=== PATIENT | female | born 1955 | race Asian ===

== ENCOUNTER 2020-07-03 14:56 | Inpatient (IN) | payer MEDICARE, OTHER ==
[~2020-07-03] VITALS: Ht 157.5 cm; Wt 59.0 kg
[2020-07-03 15:53] LABS: BASOPHILS % (AUTO) 0.2 % (0-1); EOSINOPHILS % (AUTO) 0.3 % (0-6); HEMATOCRIT 43.8 % (35.0-45.0); HEMOGLOBIN 14.2 g/dl (12.0-16.0); LYMPHOCYTES # (AUTO) 1.1 X10'3 (1.1-4.8); LYMPHOCYTES % (AUTO) 11.4 % (21-51); MEAN CORPUSCULAR HGB CONC 32.5 g/dL (33.0-36.5); MEAN CORPUSCULAR VOLUME 86.4 FL (78-98); MEAN PLATELET VOLUME 8.8 FL (7.4-10.4); MONOCYTES # (AUTO) 0.4 X10'3 (0-0.9); MONOCYTES % (AUTO) 4.6 % (2-12); NEUTROPHILS % (AUTO) 83.5 % (42-75); PLATELET COUNT 258 X10'3 (140-440); RED BLOOD COUNT 5.07 X10'6 (4.20-5.60); RED CELL DISTRIBUTION WIDTH 13.1 % (11.5-14.5); WHITE BLOOD COUNT 9.6 X10'3 (4.5-11.0)
[2020-07-03 16:09] LABS: ALANINE AMINOTRANSFERASE 135 U/L (12-78); ALBUMIN 4.1 G/DL (3.4-5.0); ALBUMIN/GLOBULIN RATIO 1.2 (1.1-1.5); ALKALINE PHOSPHATASE 99 IU/L (46-116); AMYLASE 87 U/L (25-115); ANION GAP 9 (8-16); ASPARTATE AMINO TRANSFERASE 296 U/L (10-37); BLOOD UREA NITROGEN 17 MG/DL (7-18); BUN/CREATININE RATIO 18.1 (6.6-38.0); CALCIUM 9.8 MG/DL (8.5-10.1); CHLORIDE 105 MMOL/L (99-107); CREATININE 0.94 MG/DL (0.40-0.90); GLUCOSE 204 MG/DL (70-104); LIPASE 234 U/L (73-393); SODIUM 142 MMOL/L (135-145); TOTAL CARBON DIOXIDE 27.8 MMOL/L (24-32); TOTAL PROTEIN 7.5 G/DL (6.4-8.2); eGFR 60 ML/MIN
[2020-07-03 16:10] LABS: POTASSIUM 4.6 MMOL/L (3.5-5.1)
[2020-07-03] MEDS ORDERED: normal saline 1000ML IV soln IVB ONE (16:15)
[2020-07-03] MEDS ORDERED: ondansetron/PF 4mg/2ml inj IV ONE (16:15)
[2020-07-03] MEDS ORDERED: morphine 4 MG/ML inj SYRINge IV ONE (16:15)
--- NOTE | 2020-07-03 16:34 | NUR ---
US UNDERWAY. Pascale SANDOVAL
--- NOTE | 2020-07-03 16:50 | NUR ---
US TECH AT BEDSIDE.
[2020-07-03] MEDS ORDERED: piperacillin/tazo 3.375gm/50ml 50 ML IV ONE (17:25)
[2020-07-03] MEDS ORDERED: METF-436 PO (17:52)
[2020-07-03] MEDS ORDERED: GLUC-95 PO (17:52)
[2020-07-03] MEDS ORDERED: MAGN250T11 PO (17:52)
[2020-07-03] MEDS ORDERED: CHOL100046 PO (17:52)
[2020-07-03] MEDS ORDERED: OMEG1CAP13 PO (17:52)
[2020-07-03] MEDS ORDERED: TURM500C4 PO (17:52)
[2020-07-03] MEDS ORDERED: QUET-1 PO (17:52)
[2020-07-03] MEDS ORDERED: ATOR10TA70 PO (17:52)
[2020-07-03] MEDS ORDERED: BUSP30TA2 PO (17:52)
[2020-07-03] MEDS ORDERED: TEMA15CA5 PO (17:52)
[2020-07-03] MEDS ORDERED: LISI-604 PO (17:52)
--- NOTE | 2020-07-03 18:29 | NUR ---
Patient resting in bed
[2020-07-03] MEDS ORDERED: magnesium 4gm in 100ml NS 100 ML IV PRN (18:45)
[2020-07-03] MEDS ORDERED: potassium CL 10mEq/100ml bag 100 ML IV PRN ×2 (18:45)
[2020-07-03] MEDS ORDERED: acetaminophen 325mg tablet PO PRN (18:45)
[2020-07-03] MEDS ORDERED: ondansetron/PF 4mg/2ml inj IV PRN (18:45)
[2020-07-03] MEDS ORDERED: magnesium 2GM in 50ml NS 50 ML IV PRN (18:45)
[2020-07-03] MEDS ORDERED: mag hydrox/Alum hydrox/simeth 30ml oral suspension PO PRN (18:45)
[2020-07-03] MEDS ORDERED: bisacodyl 10mg suppository rectal RC PRN (18:45)
[2020-07-03] MEDS ORDERED: potassium Cl 20 mEq SR tablet PO PRN ×2 (18:45)
[2020-07-03] MEDS ORDERED: HYDROmorphone inj. 0.5 MG/0.5 ML DISP.SYRIN IV PRN (18:45)
[2020-07-03] MEDS: normal saline 1000ml 1,000 ML IV SCH (19:08)
[2020-07-03 19:16] LABS: CLARITY,URINE CLEAR (Clear); COLOR,URINE YELLOW (Yellow); GLUCOSE, URINE NEGATIVE (Neg); KETONES,URINE NEGATIVE (Neg); LEUKOCYTE ESTERASE ,URINE SMALL (Neg); NITRITES, URINE NEGATIVE (Neg); OCCULT BLOOD,URINE SMALL (Neg); PH,URINE 6.5 (4.8-8.0); PROTEIN,URINE NEGATIVE (Neg); UROBILINOGEN,URINE 0.2 E.U/dL (0.2-1.0)
[2020-07-03 19:25] LABS: UA COLLECTION TYPE CLN CATCH MIDSTREAM
[2020-07-03 19:26] LABS: BACTERIA,URINE 1+ /HPF (Neg); RBC,URINE 0-2 /HPF (0-2); SQUAMOUS EPITHELIAL CELL,UR FEW /LPF (FEW); WBC,URINE 0-4 /HPF (0-4)
[2020-07-03] MEDS ORDERED: MESSAGE TO PHARMACY PO ONE (19:40)
[2020-07-03] MEDS ORDERED: dextrose 50%-water 50ml dispensing syringe IV PRN ×2 (19:40)
[2020-07-03] MEDS ORDERED: dextrose ORAL solution 15 GM/59 ML bottle PO PRN ×2 (19:40)
[2020-07-03] MEDS ORDERED: glucagon, human recombinant 1mg kit SUBCUT PRN (19:40)
[2020-07-03] MEDS ORDERED: insulin Lispro (HumaLOG) vial - multi-dose SQ SCH (19:40)
[2020-07-03] MEDS: K and/or MAG REPLACEMENT MC SCH (19:50)
[2020-07-03] MEDS ORDERED: non-formulary drug (Glucosamine HCl/Chondr Su A Na (Cidaflex Tablet) 1 TAB) PO SCH (20:00)
--- NOTE | 2020-07-03 20:30 | NUR ---
Received report from Amara TANG in the ER. Patient arrived at 2052 on a gurney then walked 5 feet to her bed. Patient was s.l., room air, a/o, no signs of distress, vss will continue to monitor
[2020-07-03 21:00] VITALS: BP 117/71
[2020-07-03] MEDS: insulin glargine (Lantus) pen - multi-dose SQ SCH (21:00)
[2020-07-03] MEDS: enoxaparin 40mg/0.4ml syringe SQ SCH (22:13)
[2020-07-03] MEDS: quetiapine 100mg tablet PO SCH (22:13)
[2020-07-03] MEDS: temazepam 15mg capsule PO SCH (22:14)
[2020-07-03] MEDS: piperacillin/tazo 4.5gm/100ml 100 ML IV SCH (23:46)
[2020-07-04] VITALS (17 sets, daily range): BP systolic 98–139; BP diastolic 63–87
[2020-07-04] MEDS: normal saline 1000ml 1,000 ML IV SCH ×2 (04:52→14:51)
[2020-07-04 05:18] LABS: BASOPHILS % (AUTO) 0.4 % (0-1); EOSINOPHILS % (AUTO) 0.7 % (0-6); HEMATOCRIT 33.6 % (35.0-45.0); HEMOGLOBIN 11.3 g/dl (12.0-16.0); MEAN CORPUSCULAR HEMOGLOBIN 29.2 PG (27.0-31.0); MEAN CORPUSCULAR HGB CONC 33.5 g/dL (33.0-36.5); MEAN CORPUSCULAR VOLUME 87.1 FL (78-98); MEAN PLATELET VOLUME 8.5 FL (7.4-10.4); MONOCYTES # (AUTO) 0.3 X10'3 (0-0.9); MONOCYTES % (AUTO) 7.2 % (2-12); NEUTROPHILS # (AUTO) 2.6 X10'3 (1.8-7.7); NEUTROPHILS % (AUTO) 65.7 % (42-75); PLATELET COUNT 186 X10'3 (140-440); RED BLOOD COUNT 3.86 X10'6 (4.20-5.60); RED CELL DISTRIBUTION WIDTH 12.9 % (11.5-14.5)
[2020-07-04 05:34] LABS: ALANINE AMINOTRANSFERASE 717 U/L (12-78); ALBUMIN 2.8 G/DL (3.4-5.0); ALBUMIN/GLOBULIN RATIO 1.1 (1.1-1.5); ALKALINE PHOSPHATASE 95 IU/L (46-116); ANION GAP 5 (8-16); ASPARTATE AMINO TRANSFERASE 1090 U/L (10-37); BILIRUBIN,TOTAL 1.3 MG/DL (0.1-1.0); BLOOD UREA NITROGEN 13 MG/DL (7-18); BUN/CREATININE RATIO 14.3 (6.6-38.0); CALCIUM 8.7 MG/DL (8.5-10.1); CHLORIDE 110 MMOL/L (99-107); CREATININE 0.91 MG/DL (0.40-0.90); GLUCOSE 91 MG/DL (70-104); MAGNESIUM 1.9 MG/DL (1.5-2.4); POTASSIUM 3.9 MMOL/L (3.5-5.1); SODIUM 143 MMOL/L (135-145); TOTAL CARBON DIOXIDE 28.5 MMOL/L (24-32); TOTAL PROTEIN 5.3 G/DL (6.4-8.2); eGFR 62 ML/MIN
--- NOTE | 2020-07-04 06:10 | NUR ---
Problems reprioritized. Patient report given, questions answered & plan of care reviewed with Zaira TANG.
--- NOTE | 2020-07-04 06:28 | NUR ---
Patient in room [facility]. I have received report from rosita galvez and had the opportunity to ask questions and assume patient care.
[2020-07-04] MEDS: enoxaparin 40mg/0.4ml syringe SQ SCH (06:42)
[2020-07-04] MEDS: piperacillin/tazo 4.5gm/100ml 100 ML IV SCH ×2 (07:34→17:49)
[2020-07-04] MEDS: busPIRone 15mg tablet PO SCH ×2 (07:34→15:15)
[2020-07-04] MEDS: lisinopril 5mg tablet PO SCH (07:36)
[2020-07-04] MEDS: OMEGA-3/DHA/EPA/FISH OIL 1 EACH CAPSULE.DR PO SCH (07:37)
--- NOTE | 2020-07-04 07:50 | NUR ---
CALLED OR CHARGE TO NOTIFY THEM OF PT'S K AT 3.4. PER CHARGE WILL START IV PROTOCOL. Addendum: 07/04/20 at 0819 by Zaira Eldridge RN WRONG PT
[2020-07-04] MEDS: K and/or MAG REPLACEMENT MC SCH ×2 (08:00→09:35)
[2020-07-04 08:44] LABS: PRE OP PROTIME 10.3 SECONDS (9.0-12.0)
--- NOTE | 2020-07-04 09:40 | NUR ---
DM consult: Pt with A1c 6.3%, DM education not warranted at this time. Will continue to follow. Addendum: 07/04/20 at [address] Amended: Links added.
[2020-07-04] MEDS ORDERED: PRAV20TA4 PO (11:25)
[2020-07-04] MEDS ORDERED: INDOCYANINE GREEN 25 MG/10 ML VIAL IV ONE ×2 (14:35→15:50)
--- NOTE | 2020-07-04 15:07 | NUR ---
WAITING FOR PHARMACY TO BRING ICG FOR SURGERY
[2020-07-04] MEDS ORDERED: morphine 2 MG/ML inj. syringe IV PRN (16:00)
[2020-07-04] MEDS ORDERED: hydrALAZINE 20mg/ml inj. IV PRN (16:00)
[2020-07-04] MEDS ORDERED: meperidine/PF 25mg/ml syringe IV PRN (16:00)
[2020-07-04] MEDS ORDERED: labetalol 20mg/4ml (5mg/ml) syringe IV PRN (16:00)
[2020-07-04] MEDS ORDERED: ondansetron/PF 4mg/2ml inj IV PRN (16:00)
[2020-07-04] MEDS ORDERED: proCHLORperazine 10 MG/2 ml inj IV PRN (16:00)
[2020-07-04] MEDS ORDERED: HYDROmorphone inj. 0.5 MG/0.5 ML DISP.SYRIN IV PRN ×2 (16:00)
[2020-07-04] MEDS ORDERED: ringers solution, lacted 1,000 ML IV SCH (16:00)
[2020-07-04] MEDS ORDERED: morphine 4 MG/ML inj SYRINge IV PRN (16:00)
[2020-07-04] MEDS ORDERED: acetaminophen 1,000mg/100ml IV 100 ML IV PRN (16:00)
--- NOTE | 2020-07-04 17:20 | NUR ---
Problems reprioritized. Patient report given, questions answered & plan of care reviewed with JUSTIN TANG.
[2020-07-04] MEDS ORDERED: LIDOcaine 1% 30ml preserv. free vial ONE (17:30)
[2020-07-04] MEDS ORDERED: BUPIVAcaine/PF 2.5 mg/ml (0.25%) 30ml vial ONE (17:30)
[2020-07-04] MEDS ORDERED: fentaNYL/PF 50MCG/1 ML 2ML syringe ONE (17:47)
[2020-07-04] MEDS ORDERED: midazolam 2 mg/2 ml injection ONE (17:47)
[2020-07-04] MEDS ORDERED: sugammadex 200mg/2ml injection IV ONE (17:58)
[2020-07-04] MEDS ORDERED: famotidine/PF 10 mg/ml inj IV ONE (17:59)
--- NOTE | 2020-07-04 18:00 | NUR ---
Patient in room [facility] 347. I have received report from Zaira TANG and had the opportunity to ask questions and assume patient care.
[2020-07-04] MEDS ORDERED: rocuronium 10mg/ml inj IV ONE (18:05)
[2020-07-04] MEDS ORDERED: propofol inj 20 ML IV ONE (18:05)
[2020-07-04] MEDS ORDERED: LIDOcaine 2% (20mg/ml) 5ml vial ONE (18:05)
[2020-07-04] MEDS ORDERED: ePHEDrine 50MG/ML INJ. ONE (18:05)
[2020-07-04] MEDS ORDERED: 0.9 % SODIUM CHLORIDE 10 ML VIAL ONE (18:05)
[2020-07-04] MEDS ORDERED: dexamethasone sod phosphate 4mg/ml inj. ONE (18:10)
[2020-07-04] MEDS ORDERED: ondansetron/PF 4mg/2ml inj ONE (18:10)
[2020-07-04] MEDS ORDERED: labetalol 20mg/4ml (5mg/ml) syringe IV ONE (18:29)
[2020-07-04] MEDS ORDERED: morphine 4 MG/ML inj SYRINge ONE (18:32)
[2020-07-04] MEDS ORDERED: HYDROcodone/acetaminophen 5mg/325mg tablet PO PRN (19:15)
--- NOTE | 2020-07-04 19:22 | NUR ---
Received from OR via BED, accompanied by Anesthesiologist DR CAMPBELL and report given by Anesthesiologist. PT DROWSY, DENIES PAIN, ABDOMEN W/4 LAP SITES W/BANDAIDS CDI. Addendum: 07/04/20 at 1939 by Yashira Tripp RN Amended: Links added.
--- NOTE | 2020-07-04 20:07 | NUR ---
Received report from Yashira TANG in recovery. Patient arrived at 2024 on a gurney, saline locked, a/o, vss. on 1 L. of O2, no signs of distress will continue to monitor
--- NOTE | 2020-07-04 20:22 | NUR ---
Report called to receiving nurse. Transferred via BED, NO Belongings, ONLY FACE MASK SENT W/PT TO ROOM 347A, RECEIVING RN AT BEDSIDE TO RECEIVE PT, BLL, CALL LIGHT GIVEN, SIDE RAILS UP X 2. Special Issues communicated to receiving nurse. YES. Addendum: 07/04/20 at 2025 by Yashira Tripp RN Amended: Links added.
[2020-07-04] MEDS: quetiapine 100mg tablet PO SCH (20:29)
[2020-07-04] MEDS: temazepam 15mg capsule PO SCH (21:00)
[2020-07-04] MEDS: insulin glargine (Lantus) pen - multi-dose SQ SCH (21:00)
[2020-07-05] VITALS: BP_SYST 97; BP_SYST 98; BP_DIAS 54; BP_DIAS 63
[2020-07-05] MEDS: piperacillin/tazo 4.5gm/100ml 100 ML IV SCH ×2 (00:25→08:37)
[2020-07-05] MEDS: normal saline 1000ml 1,000 ML IV SCH ×2 (04:30→10:45)
[2020-07-05 05:53] LABS: BASOPHILS % (AUTO) 0.1 % (0-1); EOSINOPHILS % (AUTO) 0 % (0-6); HEMATOCRIT 38.1 % (35.0-45.0); HEMOGLOBIN 12.5 g/dl (12.0-16.0); LYMPHOCYTES # (AUTO) 0.5 X10'3 (1.1-4.8); LYMPHOCYTES % (AUTO) 8.7 % (21-51); MEAN CORPUSCULAR HEMOGLOBIN 28.5 PG (27.0-31.0); MEAN CORPUSCULAR HGB CONC 32.8 g/dL (33.0-36.5); MEAN CORPUSCULAR VOLUME 86.8 FL (78-98); MEAN PLATELET VOLUME 8.5 FL (7.4-10.4); MONOCYTES # (AUTO) 0.1 X10'3 (0-0.9); MONOCYTES % (AUTO) 2.5 % (2-12); NEUTROPHILS # (AUTO) 4.7 X10'3 (1.8-7.7); NEUTROPHILS % (AUTO) 88.7 % (42-75); PLATELET COUNT 190 X10'3 (140-440); RED BLOOD COUNT 4.38 X10'6 (4.20-5.60); RED CELL DISTRIBUTION WIDTH 13.3 % (11.5-14.5); WHITE BLOOD COUNT 5.2 X10'3 (4.5-11.0)
[2020-07-05 06:13] LABS: ALANINE AMINOTRANSFERASE 582 U/L (12-78); ALBUMIN 3.4 G/DL (3.4-5.0); ALBUMIN/GLOBULIN RATIO 1.1 (1.1-1.5); ALKALINE PHOSPHATASE 130 IU/L (46-116); ANION GAP 12 (8-16); ASPARTATE AMINO TRANSFERASE 313 U/L (10-37); BILIRUBIN,TOTAL 0.7 MG/DL (0.1-1.0); BLOOD UREA NITROGEN 10 MG/DL (7-18); BUN/CREATININE RATIO 10.2 (6.6-38.0); CALCIUM 8.7 MG/DL (8.5-10.1); CHLORIDE 108 MMOL/L (99-107); CREATININE 0.98 MG/DL (0.40-0.90); GLUCOSE 159 MG/DL (70-104); MAGNESIUM 1.8 MG/DL (1.5-2.4); POTASSIUM 4.1 MMOL/L (3.5-5.1); SODIUM 142 MMOL/L (135-145); TOTAL CARBON DIOXIDE 21.8 MMOL/L (24-32); TOTAL PROTEIN 6.6 G/DL (6.4-8.2); eGFR 57 ML/MIN
--- NOTE | 2020-07-05 06:24 | NUR ---
Patient in room [facility] 347. I have received report from Sue TANG and had the opportunity to ask questions and assume patient care.
--- NOTE | 2020-07-05 06:25 | NUR ---
Problems reprioritized. Patient report given, questions answered & plan of care reviewed with Amanda TANG.
[2020-07-05] MEDS: busPIRone 15mg tablet PO SCH ×2 (07:12→15:18)
[2020-07-05] MEDS: lisinopril 5mg tablet PO SCH (07:15)
[2020-07-05] MEDS: OMEGA-3/DHA/EPA/FISH OIL 1 EACH CAPSULE.DR PO SCH (07:15)
[2020-07-05] MEDS: K and/or MAG REPLACEMENT MC SCH (07:16)
--- NOTE | 2020-07-05 08:31 | NUR ---
Spoke with the of patient, Moises, on the phone. Explained to him that the patient home medications can only be given to her if the MD has ordered them to be given. He acknowledges verbally understanding.
[2020-07-05 09:22] VITALS: BP 160/89
[2020-07-05 11:01] VITALS: BP 171/84
[2020-07-05] MEDS ORDERED: metFORMIN 500mg tablet PO SCH (11:10)
--- NOTE | 2020-07-05 11:11 | NUR ---
Message sent to Dr. Simeon, order to continue home medication metformin. MD will be over to see patient when done rounding on PCU.
[2020-07-05] MEDS: HYDROcodone/acetaminophen 10/325mg tab PO PRN ×2 (11:48→17:42)
--- NOTE | 2020-07-05 12:46 | NUR ---
pt refused 1200 blood glucose test. Addendum: 07/05/20 at 1246 by Ana Paula Wilkerson RN Amended: Links added.
[2020-07-05] MEDS: LORazepam 0.5 MG tablet PO PRN ×2 (13:13→17:04)
--- NOTE | 2020-07-05 17:08 | NUR ---
patient refused 1700 accucheck. Addendum: 07/05/20 at 1708 by Ana Paula Wilkerson RN Amended: Links added.
[2020-07-05] MEDS ORDERED: amox tr/potassium clavulanate 875/125mg TAB PO SCH (17:30)
--- NOTE | 2020-07-05 18:10 | NUR ---
Patient in room [facility] 347. I have received report from KITTY Patel and had the opportunity to ask questions and assume patient care.
--- NOTE | 2020-07-05 18:28 | NUR ---
Problems reprioritized. Patient report given, questions answered & plan of care reviewed with Ibeth Souza RN.
[2020-07-05] MEDS ORDERED: HYDR-4353 PO (18:37)
--- NOTE | 2020-07-05 19:10 | NUR ---
Patient discharged, IV had already been removed by day shift and patient had no iv order, here to transport patent home. Pt was wheeled to the front for pickup. Discharge instructions reviewed with patient and . Prescription was sent with patient. Advised to alternate ibuprofen and tylenol for pain relief tonight should they be unable to fill prescription tonight. Patient belongings sent with patient and .
== END 2020-07-05 19:15 | disposition home or self-care (01) | DRG 419 ==
LOC: ER 14:57 → ED HOLD 18:41 → SUR 3N 20:54
PROVIDERS: ADMIT Family Medicine; ATTEND Family Medicine
PROC: 0FT44ZZ Resection of Gallbladder, Percutaneous Endoscopic Approach (ICD-10-PCS; principal; 2020-07-03)
PROC: BF532Z0 Other Imaging of Gallbladder and Bile Ducts using Fluorescing Agent, Intraoperative (ICD-10-PCS; 2020-07-03)
PROC: 8E0W0CZ Robotic Assisted Procedure of Trunk Region, Open Approach (ICD-10-PCS; 2020-07-03)
DX: K80.00 Calculus of gallbladder with acute cholecystitis without obstruction (principal); K82.8 Other specified diseases of gallbladder; E11.9 Type 2 diabetes mellitus without complications; E78.5 Hyperlipidemia, unspecified; F41.9 Anxiety disorder, unspecified; I10 Essential (primary) hypertension; K66.0 Peritoneal adhesions (postprocedural) (postinfection); F32.9 Major depressive disorder, single episode, unspecified; R74.01 Elevation of levels of liver transaminase levels; Z83.3 Family history of diabetes mellitus; Z87.891 Personal history of nicotine dependence; Z88.8 Allergy status to other drugs, medicaments and biological substances; Z79.899 Other long term (current) drug therapy
CPT/HCPCS: 36415; 71045; 76700; 80053; 81001; 82150; 82948; 83036; 83690; 83735; 84484; 85025; 85610; 85730; 87081; 87088; 93005; 96365; 96375; 99285; A4215; A4618; A7000; C9399; G0378; J1100; J1650; J1815; J2001; J2250; J2270; J2405; J2543; J2704; J3010; J3490; J7030; J7120